=== PATIENT | male | born 1980 | race Caucasian/White ===

== ENCOUNTER 2016-07-13 15:39 | Emergency (ER) | payer MEDICAID ==
[~2016-07-13] VITALS: Ht 193 cm; Wt 95.5 kg
[2016-07-13 15:49] VITALS: BP 138/91
[2016-07-13] MEDS ORDERED: CEFTRIAXONE 250 MG IM ONE (16:00)
[2016-07-13] MEDS ORDERED: AZITHROMYCIN 500 MG TABLET PO ONE (16:00)
[2016-07-13] MEDS ORDERED: CEFTRIAXONE 250 MG ONE (16:08)
[2016-07-13] MEDS ORDERED: LIDOCAINE 1%, 20ML ONE (16:09)
[2016-07-13] MEDS ORDERED: AZITHROMYCIN 250 MG TABLET ONE (16:12)
== END 2016-07-13 16:30 | disposition home or self-care (01) ==
LOC: ED 16:17
DX: Z20.2 Contact with and (suspected) exposure to infections with a predominantly sexual mode of transmission (principal)
CPT/HCPCS: 96372; 99284; J0696; 87491; 87591; 99283

== ENCOUNTER 2018-10-22 02:35 | Emergency (ER) | payer MEDICAID ==
[~2018-10-22] VITALS: Ht 193 cm; Wt 101.7 kg
[2018-10-22 02:37] VITALS: BP 135/88
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
--- NOTE | 2018-10-22 03:02 | NUR ---
pt to xray
--- NOTE | 2018-10-22 03:49 | NUR ---
ATTEMPTED TO MEDICATE PT FOR PAIN, PT SLEEPING, SNORING. DISCUSSED PT STATUS WITH PA, ORDER RECEIVED OK TO HOLD MOTRIN AND D/C PT.
[2018-10-22] MEDS ORDERED: IBUPROFEN 800 MG TABLET PO ONE (04:00)
== END 2018-10-22 03:54 | disposition home or self-care (01) ==
LOC: ED 03:22
DX: S70.01XA Contusion of right hip, initial encounter (principal); M79.631 Pain in right forearm; M25.521 Pain in right elbow; F17.210 Nicotine dependence, cigarettes, uncomplicated; V00.131A Fall from skateboard, initial encounter; Y93.89 Activity, other specified; Y92.410 Unspecified street and highway as the place of occurrence of the external cause; Y99.8 Other external cause status
CPT/HCPCS: 99283

== ENCOUNTER 2019-01-29 15:10 | Emergency (ER) | payer MEDICAID ==
--- NOTE | 2019-01-29 15:19 | NUR ---
Nil x1
--- NOTE | 2019-01-29 15:28 | NUR ---
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
== END 2019-01-29 17:19 | disposition left against medical advice (07) ==
LOC: ED 17:13
DX: Z53.21 Procedure and treatment not carried out due to patient leaving prior to being seen by health care provider (principal)

== ENCOUNTER 2019-06-03 08:42 | Emergency (ER) | payer MEDICAID ==
[~2019-06-03] VITALS: Ht 193 cm; Wt 103.8 kg
[2019-06-03 08:59] VITALS: BP 142/103
[2019-06-03] MEDS ORDERED: CEFTRIAXONE 250 MG IM ONE (09:30)
[2019-06-03] MEDS ORDERED: AZITHROMYCIN 500 MG TABLET PO ONE (09:30)
[2019-06-03] MEDS ORDERED: CEFTRIAXONE 250 MG ONE (09:59)
[2019-06-03] MEDS ORDERED: AZITHROMYCIN 500 MG TABLET ONE (09:59)
== END 2019-06-03 10:43 | disposition home or self-care (01) ==
LOC: ED 10:20
DX: N34.1 Nonspecific urethritis (principal); F17.210 Nicotine dependence, cigarettes, uncomplicated
CPT/HCPCS: 87491; 87591; 96372; 99283; J0696